=== PATIENT | female | born 1985 | race Caucasian/White ===

== ENCOUNTER 2019-02-10 13:04 | Emergency (ER) | payer OTHER ==
[~2019-02-10] VITALS: Ht 167.6 cm; Wt 112.0 kg
[2019-02-10 13:22] VITALS: Ht 167.6 cm; Wt 112.0 kg
[2019-02-10 16:57] VITALS: BP 155/99
== END 2019-02-10 16:57 | disposition home or self-care (01) ==
LOC: ED 13:04
DX: S83.92XA Sprain of unspecified site of left knee, initial encounter (principal); W01.190A Fall on same level from slipping, tripping and stumbling with subsequent striking against furniture, initial encounter; Y93.01 Activity, walking, marching and hiking; Y92.009 Unspecified place in unspecified non-institutional (private) residence as the place of occurrence of the external cause; Y99.8 Other external cause status